=== PATIENT | male | born 1955 | race Caucasian/White ===

== ENCOUNTER 2019-09-16 17:47 | Emergency (ER) | payer MEDICAID ==
[~2019-09-16] VITALS: Ht 185.4 cm; Wt 86.2 kg
[2019-09-16 18:01] VITALS: Ht 185.4 cm; Wt 86.2 kg
[2019-09-16 19:55] LABS: BASOPHIL % 0.5 % (0-2); PLATELET COUNT 253 x10^3mcL (130-400); RED CELL DISTRIBUTION WIDTH 13.3 % (11.5-14.5)
[2019-09-16 20:12] LABS: CALCIUM 8.9 mg/dL (8.5-10.1); CARBON DIOXIDE 29.4 mmol/L (21-32); CHLORIDE SERUM 102 mmol/L (98-107); CREATININE SERUM 0.7 mg/dL (0.7-1.3); GFR1 > 60 mL/min; GLUCOSE SERUM 367 mg/dL (74-106); SODIUM SERUM 137 mmol/L (136-145)
[2019-09-16 20:16] LABS: ALKALINE PHOSPHATASE 87 U/L (46-116); ALT/SGPT 24 U/L (16-63); AST/SGOT 15 U/L (15-37); BILIRUBIN TOTAL 0.18 mg/dL (0.20-1.00); TOTAL PROTEIN, SERUM 7.5 g/dL (6.4-8.2)
[2019-09-16 20:19] LABS: ALBUMIN 3.1 g/dL (3.4-5.0)
[2019-09-16 20:46] VITALS: BP 132/78
== END 2019-09-16 20:47 | disposition home or self-care (01) ==
LOC: ED 17:47
PROVIDERS: Emergency Medicine
DX: N34.2 Other urethritis (principal); E11.9 Type 2 diabetes mellitus without complications; K59.00 Constipation, unspecified
CPT/HCPCS: 36415; Q0092